=== PATIENT | female | born 1960 | race Caucasian/White ===

== ENCOUNTER 2022-12-03 16:45 | Emergency (ER) | payer OTHER ==
[2022-12-03 17:08] VITALS: RESP 18; BMI 25.8
[2022-12-03] MEDS ORDERED: ACETAMINOPHEN 500 MG TABLET (FP) PO ONE (17:20)
[2022-12-03] MEDS ORDERED: ACETAMINOPHEN 325 MG TABLET (FP) ONE (17:22)
[2022-12-03 19:15] VITALS: BP 154/85; PULSE 66; TEMP 97.9
== END 2022-12-03 19:20 | disposition home or self-care (01) ==
LOC: JER 16:45
DX: S09.90XA Unspecified injury of head, initial encounter (principal); W10.8XXA Fall (on) (from) other stairs and steps, initial encounter; Y99.0 Civilian activity done for income or pay
CPT/HCPCS: 70450-TC; 71045-TC-FY; 72125-TC; 72170-TC-FY; 73090-TC-RT-FY; 73502-TC-LT-FY; 99284-25

== ENCOUNTER 2024-12-26 11:48 | Emergency (ER) | payer OTHER ==
[2024-12-26 11:55] VITALS: BP 179/96; PULSE 58; RESP 20; TEMP 97.9; BMI 25.3
== END 2024-12-26 16:28 | disposition home or self-care (01) ==
LOC: JERFT 11:48
DX: S00.83XA Contusion of other part of head, initial encounter (principal); W22.8XXA Striking against or struck by other objects, initial encounter; Y92.242 Post office as the place of occurrence of the external cause; Y99.0 Civilian activity done for income or pay
CPT/HCPCS: 70450-TC; 70486-TC; 99284-25